=== PATIENT | female | born 1990 | race Two or more races ===

== ENCOUNTER 2024-07-23 19:51 | Emergency (ER) | payer OTHER ==
[~2024-07-23] VITALS: Ht 149.9 cm; Wt 59.0 kg
== END 2024-07-23 22:39 | disposition home or self-care (01) ==
LOC: ER 19:53
DX: R53.81 Other malaise (principal); J06.9 Acute upper respiratory infection, unspecified; Z20.822 Contact with and (suspected) exposure to COVID-19

== ENCOUNTER → 2024-08-04 | Emergency (ER) | payer OTHER ==
[~2024-08-04] VITALS: Ht 149.9 cm; Wt 61.2 kg
== END | disposition left against medical advice (07) ==
LOC: ER 21:36
DX: Z53.21 Procedure and treatment not carried out due to patient leaving prior to being seen by health care provider (principal)